=== PATIENT | male | born 1980 | race Caucasian/White ===

== ENCOUNTER 2016-09-29 17:42 | Emergency (ER) | payer BC ==
[~2016-09-29] VITALS: Ht 177.8 cm; Wt 65.9 kg
[~2016-09-29 17:42] MED LIST: CELEXA
[2016-09-29 17:43] VITALS: TEMP 97.9
[2016-09-29 18:20] LABS: BASO # 0.1 (0.0-0.2); BASO % 0.5 % (0.0-2.0); EOS # 0.2 (0.0-0.7); EOS % 1.9 % (0-4.0); GRAN # 6.9 (1.4-6.5); GRAN % 55.3 % (42.2-75.2); HEMATOCRIT 44.3 % (42.0-52.0); HEMOGLOBIN 15.1 g/dl (13.5-18.0); LYMPH # 4.4 (1.2-3.4); LYMPH % 35.5 % (20.0-51.0); MEAN CELL VOLUME 85 fl (80.0-100.0); MEAN CORPUSCULAR HEMOGLOBIN 29 pg (27.0-31.0); MEAN CORPUSCULAR HGB CONC 34 g/dl (33.0-37.0); MEAN PLATELET VOLUME 10.2 fl (7.4-10.4); MONO # 0.8 (0.1-0.6); MONO % 6.5 % (1.7-9.3); PLATELET COUNT 189 K/mm3 (130-400); RED BLOOD COUNT 5.19 M/mm3 (4.20-5.60); REDCELL DISTRIBUTION WIDTH-CV 12.5 % (11.5-14.5); WHITE BLOOD COUNT 12.4 K/mm3 (4.8-10.8)
[2016-09-29 18:33] LABS: ADJUSTED CALCIUM 9.3 mg/dL (8.4-10.2); ALBUMIN 4.4 gm/dL (3.5-5.0); BILIRUBIN,TOTAL 0.7 mg/dL (0.0-1.0); C-REACTIVE PROTEIN 0.5 mg/dL (0.0-0.9); CALCIUM 9.6 mg/dL (8.4-10.2); CREATININE, serum 0.96 mg/dL (0.66-1.25); TOTAL PROTEIN 7.5 gm/dL (6.4-8.2)
[2016-09-29 20:11] VITALS: BP 125/86; PULSE 69
== END 2016-09-29 20:00 | disposition home or self-care (01) ==
LOC: COL.ER 17:42
PROVIDERS: Nurse Practitioner
DX: R10.11 Right upper quadrant pain (principal); R11.10 Vomiting, unspecified; F17.210 Nicotine dependence, cigarettes, uncomplicated; F32.9 Major depressive disorder, single episode, unspecified
CPT/HCPCS: J2270; J2405; J7030; Q9967